=== PATIENT | male | born 1950 | race Caucasian/White ===

== ENCOUNTER 2024-12-30 09:33 | Day surgery (SDC) | payer MEDICARE ==
[2024-12-30] MEDS: Lactated Ringers 1,000 ML IV SCH (09:53)
[2024-12-30] MEDS ORDERED: Lactated Ringers 1,000 ML IV SCH (10:30)
[2024-12-30] MEDS ORDERED: propofoL IV ONE ×2 (11:17→11:48)
[2024-12-30 12:41] VITALS: BP 135/89; PULSE 50; RESP 18; TEMP 97.8; O2SAT 100
--- NOTE | 2024-12-31 10:34 | OP ---
SURGERY DATE/TIME: 12/30/2024 [id number] PREOPERATIVE DIAGNOSIS: Positive Cologuard. POSTOPERATIVE DIAGNOSIS: 1) Multiple colon polyps. 2) Diverticulosis. PROCEDURE: Colonoscopy with multiple cold and hot snare polypectomies. SURGEON: Thomas Preciado MD ANESTHESIA: IV. CONDITION: Stable. COMPLICATIONS: None. SPECIMENS: Cecal polyp, hepatic flexure, transverse colon polyps x3, descending colon polyp, sigmoid colon polyp. INDICATIONS: The patient has not had colonoscopy before. He has a positive Cologuard. Discussed with patient and he elected to proceed. FINDINGS: Multiple polyps as below. Fair preparation. Recall 2 years for polyps. DESCRIPTION OF PROCEDURE AND FINDINGS: The patient brought to the endoscopy suite, routinely positioned, prepared. IV anesthesia induced by anesthesia. External exam normal. Digital rectal exam normal. Colonoscope was inserted and advanced to the cecum, confirmed by the ileocecal valve and the appendiceal orifice. Preparation is an A[place]chick fair preparation with over 90% mucosal visualization. Withdrawal time certainly over 8 minutes. On withdrawal, he has multiple polyps taken: 1) Cecal polyp 4 mm cold snare 2) Hepatic flexure polyp 10 hot snare. 3) Transverse colon polyps 5 mm, 4 mm, 4 mm hot snare. 4) Descending colon polyp 4 mm hot snare. 5) Sigmoid colon polyp 10 mm pedunculated hot snare. There are some diverticulosis in the sigmoid colon. Patient tolerated the procedure well, was taken to Recovery in stable condition. RECOMMENDATIONS: Follow up in 2 to 4 weeks in the office for pathology results. This likely would be a 2-year recall for the multiple colon polyps and fair preparation.
== END 2024-12-30 12:46 | disposition home or self-care (01) ==
LOC: SDC 09:33
PROVIDERS: ATTEND Surgery
DX: D12.0 Benign neoplasm of cecum (principal); D12.4 Benign neoplasm of descending colon; D12.3 Benign neoplasm of transverse colon; D12.5 Benign neoplasm of sigmoid colon; R19.5 Other fecal abnormalities; K57.30 Diverticulosis of large intestine without perforation or abscess without bleeding